=== PATIENT | female | born 1965 | race Caucasian/White ===

== ENCOUNTER 2023-06-30 14:58 | Emergency (ER) | payer OTHER, SELFPAY ==
--- NOTE | 2023-06-30 15:25 | ED_ITS ---
HPI - Alcohol General Chief Complaint: ETOH/Substance Use Stated Complaint: tremors, ? alcohol withdrawal Time Seen by Provider: 06/30/23 20:40 Source: patient Mode of arrival: EMS Limitations: no limitations History of Present Illness HPI narrative: 58-year-old female with a history of depression, anxiety, alcohol use disorder who presents emergency department for evaluation of diaphoresis, shakes, cramping sensation in her hands, lightheadedness and dizziness. Patient states that she had a long period of sobriety but after her divorce approximately 1 year prior she started drinking alcohol again. She states that she drinks 750 mL of alcohol daily (vodka and whiskey). She states that she did not have any alcohol to drink this morning and started to get shakes. She states that a friend texted her and asked how she was doing and this made her upset. She states that she then started to hyperventilate, she became diaphoretic, she felt dizzy and lightheaded as if she was going to pass out and then developed carpal spasm but no pedal spasm. She was worried that she was having a stroke and called an ambulance and was brought to emergency department for evaluation. Since being in the emergency department her symptoms have resolved. She states that she has been depressed and takes sertraline (Zoloft) but does not think that this is helping. She denies suicidal ideation homicidal ideation. Related Data Previous Rx's Medication Instructions Recorded naltrexone 50 mg tablet 50 mg PO DAILY #30 tabs 06/30/23 Allergies Allergy/AdvReac Type Severity Reaction Status Date / Time No Known Allergies Allergy Verified 06/30/23 15:32 Review of Systems 2 Review of Systems: Yes all other systems are reviewed and are negative [facility] Past Medical History [facility] Narrative: Social history: She does smoke cigarettes. She drinks alcohol daily proximally 750 mL of a combination of whiskey and vodka. She smokes marijuana daily. Social History Social History Advance Directives: No Advance Directives Information Provided: No Physical Exam ED Vital Signs: Vital Signs - 24 hr 06/30/23 15:26 06/30/23 20:19 Temperature 97.9 F 98.2 F Pulse Rate 65 64 Respiratory Rate 18 18 Blood Pressure 149/81 H 152/66 H Pulse Oximetry 98 99 Oxygen Delivery Method Room Air Room Air BMI result Body Mass Index 21.0 Vital signs revealed an elevated blood pressure of 149/81 Exam: General: Awake, alert in no distress Head: Normocephalic, atraumatic EENT: PERRL, Lids normal, sclera normal, conjunctiva normal, nose normal , ears normal, throat without erythema or exudates Neck: Supple, no adenopathy Lung: breath sounds symmetric, no wheezing, rales or rhonchi Chest: symmetric movement, nontender Heart: regular rate and rhythm, normal S1, S2 no murmurs or rubs Abdomen: soft, non-tender, nondistended, normal bowel sounds Back: no vertebral tenderness, no CVAT Extremities: no deformities, moves all extremities symmetrically Neuro: Awake, alert, oriented, normal speech, cranial nerves intact, moves all extremities symmetrically Psych: Pleasant, cooperative Course Course Course Narrative: RME:?58 yo female here for eval of tremors that started an hour ago. States she was 3 years sober prior to relapsing ast year. Admits to drinking 750ml of hard liquor daily. Last drank yesterday. No history of withdrawal seizures or DT. When asked if she is having visual disturbances she states i dont even know how to answer that . Admits to see anything out of the corner of her eye every once in a while. Denies SI/HI. Denies ilicit substance use. Not seeking detox but is agreeable for outpatient resources. denies n/v, chest pain, sob. exam: tremulous. No asterixis or tongue fasciculations. labs, addiction med consult ordered Full HPI, ROS and PE to be performed by the primary ED provider. Medical Decision Making Medical Decision Making [facility] Narrative: 58-year-old female with a history of alcohol use disorder, depression, anxiety who presents emergency department for evaluation of shakes, hyperventilation, lightheadedness, dizziness, carpal spasm and diaphoresis that came on this morning before she was able to drink and after she got a text from a friend. Patient was concerned that she was having a stroke and called an ambulance. Since being here in the emergency department her symptoms have improved. She states she is depressed but denies being homicidal or suicidal Differential diagnosis: Includes but is not limited to panic attack, hyperventilation syndrome, depression, anxiety, suicidal ideation, homicidal ideation, electrolyte abnormalities, anemia, alcohol intoxication Following evaluation was ordered: CBC, BMP, magnesium, ethanol level 21:27 My interpretation patient's laboratory evaluation is as follows: Mild anemia with an H&H of 13.3 and 36.6 with an elevated MCV of 103-consistent with alcohol use disorder and malnutrition. BMP was normal. Magnesium was low 1.4-patient is asymptomatic and again this is consistent with her alcohol use disorder. Ethanol was below detectable limits The patient does not want to get into detox program at this time but is interested in pursuing outpatient detox therefore she was given a list of detox programs to call in the morning. Patient is also interested in getting help with her depression anxiety and she is referred to [facility] told to contact them in the morning as well. Patient is interested in starting on Vivitrol to try to help prevent alcohol craving and I did prescribe Vivitrol (naltrexone) 50 mg once a day, 1 month supply She was advised to talk to her pharmacist about getting on a multivitamin is high in thiamine, folate and magnesium ordered take the supplements separately to help with her malnutrition from her alcohol use disorder. Differential Diagnosis Differential Diagnoses: The differential diagnosis associated with the presentation includes Lab Data 06/30/23 15:41 06/30/23 15:41 Labs: Lab Results 06/30/23 Range/Units 15:41 WBC 9.4 (4.8-10.8) X10*3/uL RBC 3.65 L (4.20-5.50) X10*6/uL Hgb 13.3 (12.0-16.0) g/dl Hct 36.6 L (37.0-47.0) % MCV 100.3 H (80.0-98.0) fL MCH 36.4 H (27.0-33.0) pg MCHC 36.3 H (31.0-35.0) g/dl RDW 13.2 (11.0-16.0) % Plt Count 211 (160-400) X10*3/uL MPV 9.3 L (9.4-12.3) fL Immature Gran % (Auto) 0.5 H (0.0-0.4) % Neut % (Auto) 80.5 H (45-73) % Lymph % (Auto) 12.0 L (20-40) % Hunt % (Auto) 5.9 (2-11) % Eos % (Auto) 0.7 (0-4) % Baso % (Auto) 0.4 (0-2) % Lymph # (Auto) 1.1 L (1.2-4.9) X10*3/uL Hunt # (Auto) 0.6 (0.1-1.2) X10*3/uL Eos # (Auto) 0.1 (0.0-0.4) X10*3/uL Baso # (Auto) 0.0 (0.0-0.2) X10*3/uL Abs Immat Gran (auto) 0.05 H (0.00-0.03) X10*3/uL Absolute Neuts (auto) 7.6 (2.0-8.3) x10*3/uL Absolute Nucleated RBC 0.000 (0.0-0.012) X10*3/uL Nucleated RBC % (auto) 0.0 (0.0-0.2) /100WBC Sodium 140 (135-145) mmol/L Potassium 4.3 (3.3-5.1) mmol/L Chloride 102 (96-108) mmol/L Carbon Dioxide 25 (22-29) mmol/L Anion Gap 17 (12-20) BUN 9 (9-16) mg/dL Creatinine 0.69 (0.5-1.4) mg/dL Estim Creat Clear Calc 84.7 Estimated GFR > 60 Random Glucose 104 (60-115) mg/dL Calcium 9.3 (8.4-10.2) mg/dL Magnesium 1.4 L* (1.6-2.6) mg/dL Lipase 21 (8-78) U/L Ethyl Alcohol < 10 mg/dL Prescription Management I considered prescription management with: Other (Vivitrol to reduce alcohol craving) Chronic Conditions Patient?s care impacted by: Other (Depression, anxiety, alcohol use disorder) Discharge Plan Discharge Clinical Impression: Acute hyperventilation syndrome, Hypomagnesemia, Anemia, macrocytic, nutritional, Alcohol use disorder Patient Disposition: Home, Self-Care Instructions: Hyperventilation (ED), Abuse of Alcohol (ED), Hypomagnesemia (ED) Additional Instructions: Your symptoms today were secondary to hyperventilation syndrome. Often this is triggered by a stressful event which then causes you to breathe rapidly, release as adrenaline then causes you to feel lightheaded, dizzy, numb, give you a cramping/spasm sensation your hands and feet. Your blood work did reveal that you are mildly anemic with an elevated MCV (mean corpuscular volume). This is one of the 1st signs that we see that suggests you are alcohol use disorder is starting to affect your your body. This is often caused by malnutrition and alcohol. You need to take the following supplements thiamine, folate and magnesium- discuss this with the pharmacist to try to get either a multivitamin that is high in these supplements or take them individually. I am starting you on Vivitrol (naltrexone) which is a drug that reduces your craving for alcohol, take this once a day. We are also giving you a list of the alcohol detox programs. Call the detox programs in the morning, every day until there is a bed available to help you with your alcohol use disorder You can also follow[facility]up with [facility]) which is a referral service for outpatient therapy for anxiety and depression. Their phone number is [phone]. Follow-up with your doctor in 2 days. Please return to the emergency department if your symptoms get worse or if you develop any symptoms that are concerning to you. Prescriptions: New naltrexone 50 mg tablet 50 mg PO DAILY Qty: 30 0RF
[2023-06-30 15:26] VITALS: BP 149/81; BP 155/96; PULSE 63; PULSE 65; RESP 18; TEMP 36.6; O2SAT 100; O2SAT 98; BMI 21.0
[2023-06-30 15:44] LABS: MANUAL DIFF FLAG NO
[2023-06-30 15:46] LABS: Basophils Percent Auto 0.4 % (0-2); Eosinophils Absolute Auto 0.1 X10*3/uL (0.0-0.4); Eosinophils Percent Auto 0.7 % (0-4); Hematocrit 36.6 % (37.0-47.0); Hemoglobin 13.3 g/dl (12.0-16.0); Imm Gran Abs Auto 0.05 X10*3/uL (0.00-0.03); Imm Gran Pct Auto 0.5 % (0.0-0.4); Lymphocytes Absolute Auto 1.1 X10*3/uL (1.2-4.9); Mean Corpuscular HGB Conc 36.3 g/dl (31.0-35.0); Mean Corpuscular Hemoglobin 36.4 pg (27.0-33.0); Mean Corpuscular Volume 100.3 fL (80.0-98.0); Mean Platelet Volume 9.3 fL (9.4-12.3); Monocytes Absolute Auto 0.6 X10*3/uL (0.1-1.2); Monocytes Percent Auto 5.9 % (2-11); Neutrophils Absolute Auto 7.6 x10*3/uL (2.0-8.3); Neutrophils Percent Auto 80.5 % (45-73); Platelet Count 211 X10*3/uL (160-400); Red Blood Count 3.65 X10*6/uL (4.20-5.50); Red Cell Distribution Width 13.2 % (11.0-16.0); White Blood Count 9.4 X10*3/uL (4.8-10.8)
[2023-06-30 16:02] LABS: Anion Gap 17 (12-20); Blood Urea Nitrogen 9 mg/dL (9-16); Calcium 9.3 mg/dL (8.4-10.2); Carbon Dioxide 25 mmol/L (22-29); Chloride 102 mmol/L (96-108); Creatinine Clr Calc Pharmacy 84.7; Estimated Glomerular Filt Rate > 60; Glucose Random 104 mg/dL (60-115); Lipase 21 U/L (8-78); Magnesium 1.4 mg/dL (1.6-2.6); Potassium 4.3 mmol/L (3.3-5.1); Sodium 140 mmol/L (135-145)
--- NOTE | 2023-06-30 16:02 | MHC.RECOVRN ---
Addiction Medicine consult received, chart reviewed. Pt still in waiting room.
[2023-06-30 20:19] VITALS: BP 152/66; PULSE 64; RESP 18; TEMP 36.8; O2SAT 99
--- NOTE | 2023-06-30 20:20 | PC.NURSE ---
last drink was 0300 . Denies withdrawal / seizure in the past . However reports hx of syncopal due to electrolytes off. Reports here due to feeling unwell and needs to contact sponser. Reports cant take time off work for rehab at this weeks
[2023-06-30 20:41] LABS: Ethanol < 10 mg/dL
== END 2023-06-30 21:31 | disposition home or self-care (01) ==
LOC: HO.ED 21:25
PROVIDERS: Physician Assistant Medical; Emergency Provider Emergency Medicine Emergency Medical Services
DX: F45.8 Other somatoform disorders (principal); F10.90 Alcohol use, unspecified, uncomplicated; F41.9 Anxiety disorder, unspecified; E83.42 Hypomagnesemia; D53.9 Nutritional anemia, unspecified; R42 Dizziness and giddiness; R61 Generalized hyperhidrosis
CPT/HCPCS: 36415; 80048; 80307; 83690; 83735; 85025; 99283; 99284